=== PATIENT | female | born 1940 | race Caucasian/White ===

== ENCOUNTER → 2019-05-12 09:49 | Outpatient (BNVA) | payer MEDICARE, SELFPAY | PROVIDERS: Family Provider Internal Medicine; Visit Provider Nurse Practitioner | DX: E78.5 Hyperlipidemia, unspecified (principal); E11.9 Type 2 diabetes mellitus without complications | CPT/HCPCS: 80061; 83036 ==

== ENCOUNTER → 2019-11-19 00:01 | Outpatient (BNVA) | payer MEDICARE, SELFPAY | PROVIDERS: Family Provider Internal Medicine; Visit Provider Internal Medicine | DX: E11.9 Type 2 diabetes mellitus without complications (principal); K75.81 Nonalcoholic steatohepatitis (NASH); E78.2 Mixed hyperlipidemia | CPT/HCPCS: 83036; 85025 ==

== ENCOUNTER → 2019-11-30 17:07 | Outpatient (BNVA) | payer MEDICARE, SELFPAY | PROVIDERS: Family Provider Internal Medicine; Visit Provider Nurse Practitioner Family | DX: N39.0 Urinary tract infection, site not specified (principal) | CPT/HCPCS: 80053; 81003; 87077; 87086; 87186 ==

== ENCOUNTER → 2019-12-09 11:27 | Outpatient (BNVA) | payer MEDICARE, SELFPAY | PROVIDERS: Family Provider Internal Medicine; Visit Provider Nurse Practitioner Family | DX: N39.0 Urinary tract infection, site not specified (principal) | CPT/HCPCS: 81003 ==

== ENCOUNTER → 2020-05-06 09:53 | Outpatient (BNVA) | payer MEDICARE, SELFPAY | PROVIDERS: Family Provider Internal Medicine; PCP Internal Medicine; Visit Provider Internal Medicine | DX: E78.2 Mixed hyperlipidemia (principal); E11.9 Type 2 diabetes mellitus without complications | CPT/HCPCS: 80053; 80061; 85025 ==

== ENCOUNTER → 2020-05-13 09:55 | Outpatient (BNVA) | payer MEDICARE, SELFPAY | PROVIDERS: Family Provider Internal Medicine; PCP Internal Medicine; Visit Provider Internal Medicine | DX: E11.9 Type 2 diabetes mellitus without complications (principal) | CPT/HCPCS: 83036 ==

== ENCOUNTER 2020-09-30 08:46 | Outpatient (CLI) | payer MEDICARE, SELFPAY ==
[2020-09-30 09:24] VITALS: BMI 27.3
--- NOTE | 2020-09-30 09:32 | ECG_ITS ---
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 Interpretive Statements NAME OF STUDY: LEXISCAN SESTAMIBI STRESS TEST INDICATION: [Chest Pain, ] Procedure: At the baseline, the blood pressure was 148/70mmHg with a heart rate of 76 bpm. The electrocardiogram showed normal sinus rhythm, normal axis with normal ST and T's. The Lexiscan was infused over a period of 20 seconds. A total of 0.4 mg of Lexiscan was infused. The stress phase was continued for a total of 5 minutes. Heart rate was at the end of stress phase was 107 bpm and a blood pressure of 173/76 mmHg. The EKG at the peak infusion revealed since normal sinus rhythm with no significant ST-T wave changes. Sestamibi was injected 20 seconds after the Lexiscan infusion. Blood pressure at the end of recovery phase was 160/69 mmHg with a heart rate of 99 bpm. Conclusion: 1. Normal EKG response to Lexiscan infusion 2. No Lexiscan induced chest pain or cardiac arrhythmia. 3. Normal blood pressure and heart rate response. 4. Sestamibi/sestamibi perfusion scan pending; see separate report. Electronically Signed On 10-05-2020 13:24:36 CDT by Osmar Guevara M.D. [id number]
--- NOTE | 2020-09-30 09:32 | NMCV_ITS ---
NM pelon perf SPECT r/s* [id number] Leyla Roche Age: 80 Gender: F : 1940 Exam Date: 09/30/2020 09:32 Ordering Phys: Elbert Rankin MD Technologist: SHAGGY Holman Exam Location: [facility] Indications: CHEST PAIN STRESS TEST Please see separate stress test report in Ephiphany for full findings IMAGE PROTOCOL Rest/Stress 1 Lexiscan Day Radiopharmaceutical Dose (mCi) Administration Site Administered by Rest: Tc-99m 10.[address] TECHNOLOGIST Sestamibi Stress:Tc-99m 32.4 IV Lynne Lynn, CT TECHNOLOGIST Sestamibi Rest: 30-Sep-2020 60 Discovery 630 Stress: 30-Sep-2020 30 Discovery 630 0.4mg Lexiscan. Images obtained in supine and prone position. SPECT RESULTS Technical Quality: Excellent Raw Data Analysis: Normal Image Corrections: No attenuation or motion correction applied Summed Stress Score: 9 Summed Rest Score: 3 Summed Difference Score: 6 PERFUSION FINDINGS There is moderate in size reversible perfusion defect seen in apical, apical lateral and anterior alejandro. This improves on prone imaging. This is consistent with ischemia versus attenuation infarct FUNCTIONAL RESULTS (calculated via Gated SPECT) Stress Image LV EF (%): 65 Stress EDV (mL):65 TID: 1.18 Stress ESV (mL):23 FUNCTIONAL FINDINGS: There is normal left ventricular systolic function. IMPRESSIONS 1. Abnormal myocardial perfusion imaging with ischemia vs attenuation artifact of the anterior, apical and apical lateral alejandro. Clinical correlation is required 2. LV systolic function is normal Osmar Guevara MD (Electronically Signed) Final Date: 04 October 2020 13:36 S
[2020-09-30] MEDS: regadenoson 0.4 Mg/5 ml Syringe IVP (10:46)
[2020-09-30 11:09] VITALS: BP 160/69; PULSE 98
== END 2020-09-30 08:47 | disposition home or self-care (01) ==
LOC: CDL 08:48
PROVIDERS: PCP Internal Medicine; Visit Provider Internal Medicine
DX: R07.9 Chest pain, unspecified (principal)
CPT/HCPCS: 78452; 93017; A9500; J2785

== ENCOUNTER → 2020-11-01 11:22 | Outpatient (BNVA) | payer MEDICARE, SELFPAY | PROVIDERS: PCP Internal Medicine; Referring Provider Internal Medicine; Visit Provider Internal Medicine | DX: R94.39 Abnormal result of other cardiovascular function study (principal); Z01.818 Encounter for other preprocedural examination; Z20.822 Contact with and (suspected) exposure to COVID-19 | CPT/HCPCS: 80048; 85025; 85610; 87635 ==

== ENCOUNTER 2020-11-08 07:38 | Outpatient (CLI) | payer MEDICARE, SELFPAY ==
[2020-11-08] VITALS (16 sets, daily range): BP systolic 131–160; BP diastolic 63–89; PULSE 62–99; RESP 12–23; TEMP 36.4–36.8; O2SAT 93–96; BMI 27.4
--- NOTE | 2020-11-08 07:30 | XACV_ITS ---
Exam Room: [facility] Ht: 165 cm Wt: 75 kg BSA: 1.87 m2 Gender: Female : 1940 Any Known Allergies: Other Exam Priority: Routine Procedure(s): Procedure Description: Diagnostic procedure Procedure Description: PCI procedure Procedure Description: Drug Eluting Coronary Stent Procedure Description: PTCA Procedure Description: Coronary Angiography Diagnostic Cath Status: Elective Diagnostic Findings * Left Main has distal 20% stenosis. * Circumflex has no disease. OM 1 is subtotally occluded. * Proximal Left Anterior Descending to Mid Left Anterior Descending: significant 80% stenosis, SANG: 3 flow. Bifurcation stenosis of LAD/Diagonal. * INDICATION: Worsening angina/ abnormal stress test. * Right Coronary Artery has no disease. * 1st Diagonal: severe 90% stenosis, SANG: 3 flow. * Coronary angiography shows right dominance. PCI Status: Elective PCI Indication: New Onset Angina <= 2 months Interventional Findings * Procedure details: We engaged left main artery with XB 3.5 guide catheter. IV heparin was administered to maintain an ACT above 250 seconds. A 0.014 run-through guidewire was used to cross the stenosis and was placed in distal LAD. Fielder XT guidewire was used to cross into diagonal artery. 2.00 x 12 mm semicompliant balloon was used to predilate the stenosis in the ostial diagonal. This was followed by 2.5x12mm semi-compliant balloon angioplasty of prox to mid LAD. We then placed a 2.43k01pw Resolute Paullina EDER. Ostial diagonal artery was rewired and balloon angioplasty of ostial diagonal artery was performed again.At this time final angiogram was performed that showed excellent stent expansion, SANG-3 flow and no residual stenosis in LAD. Ostial diagonal still had residual stenosis. However patient was pain free and there was excellent flow. Guidewire and guide catheter were removed. Patient left the Branch Administrator in a stable condition. * Proximal Left Anterior Descending to Mid Left Anterior Descendin% stenosis treated with a AB TREK 2.50X12 RX BALLOON, and MDT R SCOTTY 2.75X18 EDER. 0% residual stenosis, SANG: 3 flow. * 1st Diagonal: 90% stenosis treated with a AB MINI TREK 2.00X12 RX BALLOON, and AB TREK 2.50X12 RX BALLOON. 0% residual stenosis, SANG: 3 flow. Conclusions 1. There is significant coronary artery disease with bifurcation disease of the LAD/ Diagonal artery. LAD treated with DESx 1 and balloon angioplasty of the diagonal artery. 2. Proximal Left Anterior Descending to Mid Left Anterior Descending was treated with a Balloon, and Drug Eluting Stent. 3. 1st Diagonal was treated with a Balloon, and Balloon. Recommendations * Transfer to [facility]. * Aspirin and Plavix for atleast 1 year. * High intensity statin therapy. * Outpatient cardiology follow up in 4 weeks. Interventional RX Recommendation: PCI w/o planned CABG Diagnostic RX Recommendation: PCI w/o planned CABG Anticoagulation: Heparin Pressures Phase:Rest AO : 88 / 51 ( 68 ) @ 9:16:00 AM 88 / 43 ( 49 ) @ 9:26:00 AM 91 / 40 ( 62 ) @ 9:38:00 AM 109 / 42 ( 68 ) @ 9:43:00 AM 132 / 73 ( 101 ) @ 10:00:00 AM 139 / 61 ( 96 ) @ 10:13:00 AM 141 / 61 ( 97 ) @ 10:35:00 AM Clinical Evaluation EBL: 5mL-10mL Procedural Details Procedure Consent Obtained. Current Diagnosis : Chest Pain. Pre-Procedure Time Out. Identified patient by full name and date of as verbalized by the patient/guarantor. Does the consent match the physician's order: Yes. Accurate & Complete Informed Consent: Yes. Inpatient/Outpatient History & Physical on Chart: Yes. If H&P is completed, is and addenduem needed: No; If yes, is the addendum complete: N/A. Visualize and Verify Site with Patient/Guarantor: N/A. Relevant Radiology Images available: Yes. Pre-op teaching completed and patient verbalized understanding. The risks, benefits, and alternatives of sedation and/or procedure were discussed by physician. The patient agrees to continue. Procedure started. Physician arrived. [facility] Clinical Fraility Score: 3: Managing Well. Branch Administrator Indications: Suspected CAD. Chest Pain Symptom Assessment: Typical Angina Symptoms. Correct patient, site and procedure confirmed by cath team. Current diagnosis: Chest Pain. PERRLA. Strong, equal hand production assembler bilaterally. Lungs clear x 5 lobes. IV Site on Arrival: 20 gauge in the left anticubital. IV Fluids: 0.9% NaCl at KVO. 0 mL infused prior to labor representative. Pre Procedural Pulses: bilateral posterior tibial was 3+. Pre Procedural Pulses: bilateral dorsalis pedis was 3+. Pre Procedural Pulses: bilateral radial was 3+. Oxygen started at 2liters/min via nasal canula. right groin was prepped with chloroprep then draped in the usual sterile fashion. right radial was prepped with chloroprep then draped in the usual sterile fashion. Baseline sample Acquired. HR: 70 BPM. Chanell Noble circulating and Manuel Saba scrubbing. Physician scrubbed in. Immediate Pre-Procedure Time Out. Correct Patient: Yes; Correct Procedure: Yes; Correct Site: Yes; Correct Patient Position: Yes; Correct Supplies: Yes; Dried Flammable Prep: Yes; Blood Products Available: N/A;. Lidocaine 1% infiltrated to the right radial. Arterial access obtained. A 5 burmese TIG catheter in over wire. Multiple views taken of left coronary artery. Catheter redirected to the RCA. Catheter removed over the exchange wire. 6 burmese XB 3.5 guide catheter was inserted over the wire. Runthrough guidewire was advanced through the guide catheter to lesion in the prox LAD. Runthrough guidewire was advanced through the guide catheter to lesion in the diaganol. The LAD runthrough wire out. Runthrough guidewire was advanced through the guide catheter to lesion in the prox LAD. The LAD runthrough wire out. Runthrough guidewire was advanced through the guide catheter to lesion in the prox LAD. The diag runthrough wire out. PT guidewire was advanced through the guide catheter to lesion in the diaganol. Color Mixer wire out. Color Mixer wire inserted.Teleport microcatheter inserted and advanced to the diag. Color Mixer wire out. ACT drawn. Results 397 seconds. Therapeutic limits - pre-heparin administration 90-150 seconds and monitoring heparin during a vascular procedure >250 seconds. Color Mixer wire inserted.Teleport microcatheter inserted and advanced to the diag. Color Mixer wire out. 300cm Runthrough guidewire was advanced through the guide catheter to lesion in the diaganol. wire out. 300cm Runthrough guidewire was advanced through the guide catheter to lesion in the diaganol. Family updated. wire out. Fielder guidewire was advanced through the guide catheter to lesion in the diaganol. wire out. Fielder guidewire was advanced through the guide catheter to lesion in the diaganol. Hydraslide performed with the microcatheter. Microcatheter out. Trek 2.5x12mm balloon inserted and advanced to the diag. LAD wire pulled back to the guide. Balloon out. Runthrough wire out. Inflation number : 1 A AB MINI TREK 2.00X12 RX BALLOON was prepped and advanced across the 1st Diag , then inflated to 12 NEDA for 0:17 seconds. Balloon out. Results checked. Inflation number : 2 A AB TREK 2.50X12 RX BALLOON was prepped and advanced across the 1st Diag , then inflated to 12 NEDA for 0:22 seconds. Balloon out. Results checked. Runthrough guidewire was advanced through the guide catheter to lesion in the prox LAD. Inflation number: 1 The AB TREK 2.50X12 RX BALLOON was reinflated across the Prox LAD, to 12 NEDA for 0:21 seconds. Balloon out. Inflation number: 3 The AB TREK 2.50X12 RX BALLOON was reinflated across the 1st Diag, to 10 NEDA for 0:16 seconds. Balloon out. Inflation Number : 2 A MDRosalinda R SCOTTY 2.75X18 EDER -Lot Number# [id number] was prepped and advanced across the Prox LAD. The stent was deployed at 14 NEDA for 0:27 seconds. EXP 05-27-2022. Stent balloon out. LAD wire redirected to the Diag. Fielder wire out. Inflation number: 4 The AB MINI TREK 2.00X12 RX BALLOON was reinflated across the 1st Diag, to 12 NEDA for 0:17 seconds. Inflation number: 5 The AB MINI TREK 2.00X12 RX BALLOON was reinflated across the 1st Diag, to 12 NEDA for 0:24 seconds. Balloon out. Results checked. Wire out. Guide catheter out. TR band placed. Hemostasis obtained. Post Procedure: Pulses reassessed and unchanged. PERRLA. Strong, equal hand production assembler bilaterally. No VTE prophylaxis required. Vital chart was stopped. Medication's Wasted: Heparin = 4000 units. Medication's Wasted: Nitro = 49.6 mg. Medication's Wasted: Lidocaine 1% = 18 mL. Medication's Wasted: Other = Versed 1 mg. Total IV fluids: 150 mL. Contrast type used: Visipaque 320 mgI/mL, 500 mL bottle. Complications: None. Estimated blood loss: 5mL-10mL. Procedure completed. Patient transferred by bed to 1st floor. ACT drawn. Results 194 seconds. Therapeutic limits - pre-heparin administration 90-150 seconds and monitoring heparin during a vascular procedure >250 seconds. Access Site Site: Right Radial artery Sheath Size: 6 Fr Hemostasis Success: Unsuccessful Procedure Medications Start: 9:59 AM Stop: 9:59 AM Medication: Versed 1 mg and Fentanyl 25 mcg Amount: 1 Route: I.V. Start: 10:07 AM Stop: 10:07 AM Medication: Versed 1 mg and Fentanyl 25 mcg Amount: 1 Route: I.V. Start: 10:10 AM Stop: 10:10 AM Medication: Nitrogylcerin Amount: 200 mcg Route: I.A. Start: 10:12 AM Stop: 10:12 AM Medication: Heparin Amount: 5000 units Route: I.V. Start: 10:22 AM Stop: 10:22 AM Medication: Heparin Amount: 4000 units Route: I.V. Start: 10:32 AM Stop: 10:32 AM Medication: Versed Amount: 1 mg Route: I.V. Start: 10:34 AM Stop: 10:34 AM Medication: Fentanyl Amount: 25 mcg Route: I.V. Start: 10:56 AM Stop: 10:56 AM Medication: Heparin Amount: 1000 units Route: I.V. Start: 11:07 AM Stop: 11:07 AM Medication: Versed 1 mg and Fentanyl 25 mcg Amount: 1 Route: I.V. Start: 11:31 AM Stop: 11:31 AM Medication: Nitrogylcerin Amount: 200 mcg Route: I.A. Start: 11:34 AM Stop: 11:34 AM Medication: Versed Amount: 1 mg Route: I.V. Start: 11:35 AM Stop: 11:35 AM Medication: Nitrogylcerin Amount: 200 mcg Route: I.A. Start: 11:40 AM Stop: 11:40 AM Medication: Plavix Amount: 600 mg Route: P.O. Start: 11:50 AM Stop: 11:50 AM Medication: Heparin Amount: 3000 units Route: I.V. I, the attending physician, have reviewed and verified all procedure medications. Yes, all medications given per verbal order History/Risk Factors Hypertension: No Dyslipidemia: Yes Peripheral Arterial Disease (PAD): No Myocardial Infarction (UT): No Obesity: No Renal Disease: No Prior Interventions PCI: No CABG: No Valve Surgery: No Report Signatures Finalized by Osmar Guevara MD on 11/13/2020 10:46 PM
[2020-11-08] MEDS: diphenhydrAMINE 50 mg Capsule PO (08:36)
--- NOTE | 2020-11-08 09:44 | W.PM.OPSUD ---
Surgery/Procedure H&P Update DATE OF PROCEDURE: November 08, 2020 DATE H&P PERFORMED: 10/12/20 H&P UPDATE INFORMATION: I have reviewed H&P completed within last 30 days, I have examined patient prior to procedure and No changes to prior documentation PREOP DIAGNOSIS: Chest pain/abnormal stress test PLANNED PROCEDURE: Operation Date: 11/08/20 08:30 Proposed Procedures p Cardiac Catheterization(Bilateral) - Osmar Guevara M.D Possible percutaneous intervention PATIENT REASSESSED PRIOR TO SEDATION, WITH NO CHANGE NOTED: Yes PHYSICAL EXAM: alert, oriented x 3, clear to auscultation bilaterally and regular rate & rhythm AIRWAY EVAL/ANESTHESIA PLAN: ASA III, Monitored Anesthesia, Local Anesthesia, Risks, benefits & alternatives of sedation and/or procedure discussed and Patient agrees to continue as planned
--- NOTE | 2020-11-08 11:59 | ECG_ITS ---
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
[2020-11-08] MEDS: nitroglycerin 1 gm/inch oint Pkt 1 INCH TOPICAL (12:32)
--- NOTE | 2020-11-08 16:47 | PC.NURSE ---
Shift Note Frequent safety and comfort rounds continue. Orders and/or nursing care completed as indicated. Patient monitored for response to intervention and treatment(s). Education provided includes post angiogram care instructions. Patient and/or client relations representative verbalized understanding. Will continue to monitor.
[2020-11-08 19:56] LABS: Glucose Point of Care 197 mg/dL (70-110)
[2020-11-08] MEDS: metoprolol tartrate 50 mg Tablet PO (20:26)
[2020-11-09] VITALS: BP 128/61; PULSE 75; RESP 17; TEMP 36.9; O2SAT 93
--- NOTE | 2020-11-09 02:55 | PC.NURSE ---
Shift Note Frequent safety and comfort rounds continue. Orders and/or nursing care completed as indicated. Patient monitored for response to intervention and treatment(s). Education provided includes side effects of metoprolol. Patient and daughter verbalized understanding. Will continue to monitor. Pt had fluids running at 75ml/hr but there was not a bag scanned into the MAR.
[2020-11-09 03:27] VITALS: BP 146/70; PULSE 77; RESP 14; TEMP 37.1; O2SAT 94
[2020-11-09 03:29] VITALS: PULSE 94
[2020-11-09 04:46] LABS: Basophils # 0.1 10^3/uL (0.0-0.1); Basophils % 0.5 %; Eosinophils # 0.1 10^3/uL (0.0-0.8); Eosinophils % 1.4 %; Hematocrit 41.3 % (37.0-47.0); Hemoglobin 13.3 g/dL (11.5-15.3); Lymphocytes # 2.1 10^3/uL (0.8-4.8); Lymphocytes % 21.3 %; Mean Corpuscular HGB Conc 32.2 g/dL (30.0-36.0); Mean Corpuscular Hemoglobin 29.8 pg (28.0-34.0); Mean Corpuscular Volume 92.6 fl (81-99); Mean Platelet Volume 10.7 fL (7.4-10.4); Monocytes # 0.9 10^3/uL (0.2-0.9); Monocytes % 9.1 %; Neutrophils # 6.63 10^3/uL (1.8-7.7); Neutrophils % 67.4 %; Nucleated Red Blood Cells % 0 %; Platelet Count 256 10^3/cmm (130-400); Red Blood Count 4.46 10^6/uL (4.1-5.3); Red Cell Distribution Width 12.6 % (12.1-15.1); White Blood Count 9.8 10^3/uL (4.0-10.0)
[2020-11-09 05:06] LABS: Anion Gap 14.1 (5-19); Blood Urea Nitrogen 20 mg/dL (8-23); Calcium 8.8 mg/dL (8.5-10.5); Carbon Dioxide 25 mmol/L (22-29); Chloride 106 mmol/L (98-107); Glucose 220 mg/dL (65-115); Osmolality Calculated 301 mOsm/kg (285-295); Potassium 4.1 mmol/L (3.5-5.1); Sodium 141 mmol/L (136-145)
[2020-11-09 06:34] LABS: Glucose Point of Care 221 mg/dL (70-110)
[2020-11-09] MEDS: aspirin 81 mg EC Tablet PO (07:55)
[2020-11-09] MEDS: clopidogrel 75 mg Tablet PO (07:56)
[2020-11-09] MEDS: metoprolol tartrate 50 mg Tablet PO (07:56)
[2020-11-09 08:00] VITALS: BP 135/65; PULSE 86; RESP 19; TEMP 36.4; O2SAT 96
--- NOTE | 2020-11-09 08:42 | PC.CHAP ---
Pastoral Care Encounter/Spiritual Assessment Type of Contact [] Declined cookee visit [] Patient/Family/Request visit [] Outpatient visit [] Follow-up visit [] Physician referral [] Code/Alert [x] Routine visit [] Staff referral [] Actively dying [] Patient sleeping [] Family support [] [] Out of room [] Palliative care [] [] Receiving care in room [] Pre-surgical visit [] Trauma [] Long length of stay [] ICU visit [] Other: Relational/Emotional Strength [] Patient feels connected with others/family/visitors/staff [] Distress [] Loneliness/isolation [] Abandonment Spirituality of Patient [] Person of Magaly [] Attends Jainism of their [place] [] Believes in Prayer [] Reads Bible or Baptist materials [] There are Spiritual issues to be addressed Clinical Reimbursement Specialist Interventions [x] Prayer [] Active listening [] Non-anxious presence [] Spiritual/emotional support [] Crisis/trauma care [] Spiritual counseling [] Bereavement support [] Provided bereavement packet [] Provided Bible/devotional materials [] Provided toy/stuffed animal, coloring book to patient or family member [] Provided Communion [] Anointing/[place] [] Salvation [x] Completed spiritual assessment [] Other: Impact on Illness or Injury [] Angry [] Fearful [] Anxious [] Often cries [] Exhaustion [] Unable to work [] Unable to attend orthodoxy [] Unable to walk/stand [] Unable to read [] Unable to drive [] Unable to eat/drink [] Unable to sleep [] Unable to be with family [] Patient intubated [] Other: Summary Time spent with patient
--- NOTE | 2020-11-09 10:01 | P.DS_ITS ---
Discharge Providers Date of Admission: 11/08/2020 Date of Discharge: November 09, 2020 Attending Provider at Admission: Osmar Guevara MD Attending Provider at Discharge: Osmar Guevara M.D Primary Care Provider: Elbert Rankin MD Reason for Visit Reason for Visit: R94.39 Brief History: 80-year-old woman with past medical history of type 2 diabetes, diabetic neuropathy presented with having chest discomfort episodes since July. She had one episode in July when she was rushing and felt substernal pressure. It lasted for several minutes. She again had another episode last month that was similar as she was going uphill and started noticing substernal chest discomfort. She had to rest for several minutes before it improved. Non radiating. A Lexiscan was performed that showed moderate sized anterior, apical lateral and apical wall perfusion defect. However attenuation artifact could not be ruled out. Plan for left heart cath Hospital Course Hospital Course 80-year-old woman with past medical history of type 2 diabetes, diabetic neuropathy presented with having chest discomfort episodes since July. She had one episode in July when she was rushing and felt substernal pressure. It lasted for several minutes. She again had another episode last month that was similar as she was going uphill and started noticing substernal chest discomfort. She had to rest for several minutes before it improved. Non radiating. A Lexiscan was performed that showed moderate sized anterior, apical lateral and apical wall perfusion defect. However attenuation artifact could not be ruled out. Plan for left heart cath Coronary angiogram showed severe LAD and diagonal artery bifurcation stenosis. Proximal to mid LAD was treated with EDER x1. Diagonal artery underwent balloon angioplasty. Patient had a brief chest discomfort postprocedure however it resolved with nitro. She will be discharged on aspirin and Plavix for at least 1 year. Physical Exam Narrative: EXAM NARRATIVE: GENERAL: Patient is alert, awake and oriented x3. [] NECK: No jugular vein distension. [] HEENT: No cyanosis. No icterus. No pallor. [] HEART: Regular S1 and S2. No murmur, rub or gallop. [] LUNGS: Clear to auscultate bilaterally. [] ABDOMEN: Soft, nontender and nondistended. Positive bowel sounds. No guarding, rebound or tenderness. [] CENTRAL NERVOUS SYSTEM: Grossly nonfocal. [] EXTREMITIES: Lower extremities with no edema bilaterally. Pulses palpable in the lower extremities, both dorsalis pedis and posterior tibial. [] Discharge Data Data Completed and Pending: Pending at discharge Category Date Time Status FOIL SPINNER request for service Routin e Exams 11/08/20 07:30 Taken Labs from last 24 hours 11/09/20 11/09/20 11/09/20 06:24 04:16 04:16 WBC 9.8 RBC 4.46 Hgb 13.3 Hct 41.3 MCV 92.6 MCH 29.8 MCHC 32.2 RDW 12.6 Plt Count 256 MPV 10.7 H Neut % (Auto) 67.4 Lymph % (Auto) 21.3 [place] % (Auto) 9.1 Eos % (Auto) 1.4 Baso % (Auto) 0.5 Neut # (Auto) 6.63 Lymph # (Auto) 2.1 [place] # (Auto) 0.9 Eos # (Auto) 0.1 Baso # (Auto) 0.1 Nucleated RBC % (a uto) 0 Nucleated RBCs # 0.0 Sodium 141 Potassium 4.1 Chloride 106 Carbon Dioxide 25 Anion Gap 14.1 BUN 20 Creatinine 0.5 GFR Calculation Not Reportable Glucose 220 H POC Glucose 221 H Calculated Osmolal ity 301 H Calcium 8.8 11/08/20 19:30 WBC RBC Hgb Hct MCV MCH MCHC RDW Plt Count MPV Neut % (Auto) Lymph % (Auto) [place] % (Auto) Eos % (Auto) Baso % (Auto) Neut # (Auto) Lymph # (Auto) [place] # (Auto) Eos # (Auto) Baso # (Auto) Nucleated RBC % (a uto) Nucleated RBCs # Sodium Potassium Chloride Carbon Dioxide Anion Gap BUN Creatinine GFR Calculation Glucose POC Glucose 197 H Calculated Osmolal ity Calcium Vitals: Last Vital Signs Temp 97.6 F 11/09/20 08:00 Pulse 86 11/09/20 08:00 Resp 19 H 11/09/20 08:00 BP 135/65 11/09/20 08:00 Pulse Ox 96 11/09/20 08:00 Discharge Plan Discharge Patient Disposition: Home Prescriptions: New clopidogrel 75 mg Tablet 75 mg PO DAILY Qty: 90 RF: 3 isosorbide mononitrate 30 mg tablet extended release 24 hr 30 mg PO DAILY Qty: 30 RF: 1 Continued (DME) blood sugar diagnostic Strip See Rx Instructions strip .ROUTE .MEDSUPPLY Qty: 10 RF: 0 gabapentin 300 mg capsule 300 mg PO DAILY RF: 0 glimepiride 4 mg tablet 4 mg PO BID Qty: 180 RF: 3 (DME) Diabetic shoes and inserts Qty: 1 RF: 0 simvastatin 40 mg tablet 40 mg PO DAILY Qty: 90 RF: 3 (DME) Accu-Chek Janet Plus test strp Strip See Rx Instructions .ROUTE .MEDSUPPLY Qty: 100 RF: 3 (DME) lancets Misc See Rx Instructions ea .ROUTE .MEDSUPPLY Qty: 200 RF: 8 metoprolol tartrate 50 mg tablet 50 mg PO BID Qty: 60 RF: 2 amlodipine 5 mg tablet 5 mg PO DAILY Qty: 90 RF: 0 aspirin 81 mg tablet 81 mg PO DAILY RF: 0 omeprazole 20 mg tablet 20 mg PO DAILY RF: 0 Held metformin 500 mg tablet extended release 24 hr 1,000 mg PO DAILY Qty: 180 RF: 3 Hold Instructions: Resume on 11/11/20. Discontinued celecoxib 100 mg capsule 100 mg PO BID Qty: 180 RF: 3 No Action Lantus Solostar U-100 Insulin 100 unit/mL (3 mL) insulin pen 20 unit SUBCUT .QPM Qty: 15 RF: 0 Discharge Orders: Discharge Order (Routine); Ordered 11/09/20 Ordered By: Osmar Guevara Referrals: Osmar Guevara M.D [Physician] - 1 month (You will have a follow up appointment with Dr. Guevara on SaturdayDecember 19 at 3 pm. Please bring your med list and insurance card during doctor's visit. ) Gladys Brown FNP [Nurse Practitioner] - 7-10 days (You have a follow-up appointment on SaturdayNovember 16 at 2:30 pm. Please bring your med list and insurance card during doctor's visit. ) Diet: Diabetic Activity: Increase activity as tolerated Patient Instructions: Isosorbide Mononitrate (By mouth), Clopidogrel (By mouth), Left Heart Catheterization (DC), Coronary Intravascular Stent Placement (DC), Post Angiogram Home Care Instructions Activity Restrictions/Additional Instructions: Please do not lift more than 5 pounds of weight for the next 5 days Stand Alone Forms: Work/School Release Discharge Date/Time: 11/09/20 11:17 Discharge Attestations Time Spent in Discharge Care*: greater than 30 min Quality Metrics Clinical Quality Measures During this hospital stay, did patient experience: None Coding Level of Care Code Acute Chg DC note
--- NOTE | 2020-11-09 11:18 | PC.NURSE ---
Discharge Note Patient discharged to home via wheelchair accompanied by daughter. Discharge instructions reviewed with patient and/or parts counter representative. Post angiogram home care instructions discussed to pt and daughter. new meds actions, dosing, timing, continued, hold and discontinued meds discuss to pt. Discharge packet provided to pt. Mobile pharmacy medications and/or prescriptions provided. Belongings/home medications returned.
== END 2020-11-09 11:17 | disposition home or self-care (01) ==
LOC: CCL 07:46 → CSU 14:50
PROVIDERS: Internal Medicine Cardiovascular Disease; PCP Internal Medicine; Visit Provider Internal Medicine
DX: I25.119 Atherosclerotic heart disease of native coronary artery with unspecified angina pectoris (principal); R07.89 Other chest pain; E11.40 Type 2 diabetes mellitus with diabetic neuropathy, unspecified; E78.2 Mixed hyperlipidemia; Z82.49 Family history of ischemic heart disease and other diseases of the circulatory system; Z83.3 Family history of diabetes mellitus
CPT/HCPCS: 36415; 36416; 80048; 82962; 85025; 85347; 93005; 93454; 96372; C1725; C1769; C1874; C1887; C1894; C9600; J1644; J1815; J2250; J3010; J3490; J7030; Q0163; Q9967

== ENCOUNTER → 2020-11-16 15:20 | Outpatient (BNVA) | payer MEDICARE, SELFPAY | PROVIDERS: PCP Internal Medicine; Visit Provider Nurse Practitioner Family | DX: I25.10 Atherosclerotic heart disease of native coronary artery without angina pectoris (principal); Z95.5 Presence of coronary angioplasty implant and graft | CPT/HCPCS: 80048 ==

== ENCOUNTER → 2021-01-10 16:29 | Outpatient (BNVA) | payer MEDICARE, SELFPAY | PROVIDERS: PCP Internal Medicine; Visit Provider Internal Medicine | DX: I25.10 Atherosclerotic heart disease of native coronary artery without angina pectoris (principal); R94.39 Abnormal result of other cardiovascular function study; I10 Essential (primary) hypertension | CPT/HCPCS: 80048; 83880 ==

== ENCOUNTER → 2021-06-19 14:03 | Outpatient (BNVA) | payer MEDICARE, SELFPAY | PROVIDERS: PCP Internal Medicine; Visit Provider Internal Medicine | DX: Z09 Encounter for follow-up examination after completed treatment for conditions other than malignant neoplasm (principal); I25.10 Atherosclerotic heart disease of native coronary artery without angina pectoris; E78.2 Mixed hyperlipidemia; E11.9 Type 2 diabetes mellitus without complications; I10 Essential (primary) hypertension; Z79.4 Long term (current) use of insulin; Z79.82 Long term (current) use of aspirin | CPT/HCPCS: 99214 ==

== ENCOUNTER → 2021-08-17 09:43 | Outpatient (BNVA) | payer MEDICARE, SELFPAY | PROVIDERS: PCP Internal Medicine; Visit Provider Internal Medicine | DX: E11.9 Type 2 diabetes mellitus without complications (principal); I10 Essential (primary) hypertension; I25.10 Atherosclerotic heart disease of native coronary artery without angina pectoris; E11.40 Type 2 diabetes mellitus with diabetic neuropathy, unspecified; E78.2 Mixed hyperlipidemia; R07.89 Other chest pain; M19.90 Unspecified osteoarthritis, unspecified site | CPT/HCPCS: 80053; 80061; 83036; 84443; 85025 ==

== ENCOUNTER → 2021-12-18 15:10 | Outpatient (BNVA) | payer MEDICARE, SELFPAY | PROVIDERS: PCP Internal Medicine; Visit Provider Internal Medicine | DX: I25.10 Atherosclerotic heart disease of native coronary artery without angina pectoris (principal); I10 Essential (primary) hypertension; E78.2 Mixed hyperlipidemia; E11.9 Type 2 diabetes mellitus without complications; Z79.4 Long term (current) use of insulin; Z79.84 Long term (current) use of oral hypoglycemic drugs; R07.9 Chest pain, unspecified | CPT/HCPCS: 99214 ==

== ENCOUNTER 2022-01-10 08:53 | Outpatient (CLI) | payer MEDICARE, SELFPAY ==
[2022-01-10 08:56] VITALS: BMI 27.9
--- NOTE | 2022-01-10 08:57 | ECG_ITS ---
[facility] Test Date: 2022-01-10 Pat Name: Leyla Roche Department: Room: Gender: Female [employer]: : 1940 Requested By: Osmar Guevara Order Number: [id number] Krishna MD: Latoya Franks M.D. Interpretive Statements NAME OF STUDY: LEXISCAN SESTAMIBI STRESS TEST INDICATION: Chest Pain PROCEDURE: At the baseline, the blood pressure was 130/58 mmHg with a heart rate of 59 bpm. The electrocardiogram showed sinus bradycardia, normal axis with normal ST and T's. The Lexiscan was infused over a period of 20 seconds. A total of 0.4 milligrams of Lexiscan was infused. The stress phase was continued for a total of 5 minutes. Heart rate at the end of the stress phase was 82 bpm with a blood pressure of 136/49 mmHg. The EKG at the peak infusion revealed sinus rhythm with no significant ST-T wave changes. The study was terminated due to protocol completion. Sestamibi was injected 20 seconds after the Lexiscan infusion. Blood pressure at the end of the recovery phase was 134/53 mmHg with a heart rate of 81 beats per minute. CONCLUSION: 1. Normal EKG response to LexiScan infusion. 2. No LexiScan induced chest pain or cardiac arrhythmia. 3. Normal blood pressure and heart rate response. 4. Sestamibi/sestamibi perfusion scan pending; see separate report. Electronically Signed On 01-11-2022 17:21:24 CDT by Latoya Franks M.D. [id number]
--- NOTE | 2022-01-10 08:57 | NMCV_ITS ---
NM pelon perf SPECT r/s* [id number] Leyla Roche Age: 81 Gender: F : 1940 Exam Date: 01/10/2022 10:14 Ordering Phys: Osmar Guevara M.D ([email or web address]) Technologist: SHAGGY Holman Exam Location: [facility] Indications: CHEST PAIN STRESS TEST Please see separate stress test report in [facility] for full findings IMAGE PROTOCOL Rest/Stress 1 Lexiscan Day Radiopharmaceutical Dose (mCi) Administration Site Administered by Rest: Tc-99m 10.4 IV KRISTIE JEAN DETAIL SUPERVISOR Sestamibi Stress:Tc-99m 32.6 IV KRISTIE JEAN DETAIL SUPERVISOR Sestamibi Rest: 10-Jan-2022 60 Discovery 630 Stress: 10-Jan-2022 30 Discovery 630 0.4mg Lexiscan. Images obtained in supine and prone position. SPECT RESULTS Technical Quality: Excellent Raw Data Analysis: Hepatic and subdiaphragmatic attenuation artifact. Image Corrections: No attenuation or motion correction applied Summed Stress Score: 2 Summed Rest Score: 1 Summed Difference Score: 1 PERFUSION FINDINGS SPECT images demonstrate homogeneous tracer distribution throughout the myocardium. FUNCTIONAL RESULTS (calculated via Gated SPECT) Stress Image LV EF (%): 80 Stress EDV (mL):60 TID: 1.37 Stress ESV (mL):12 FUNCTIONAL FINDINGS: The left ventricle is normal in size. Transient Ischemia Dilatation of 1.37. The left ventricular ejection fraction is normal with a value of 80%. There is hyperdynamic left ventricular global systolic function. IMPRESSIONS 1. Myocardial perfusion imaging is normal. 2. Overall left ventricular systolic function is normal without regional wall motion abnormalities, LVEF=80%. 3. Transient ischemic dilation index increased at 1.37. This may represent subendocardial ischemia/hypertensive response. Clinical correlation is advised. 4. No EKG changes with Lexiscan infusion. Latoya Franks MD (Electronically Signed) Final Date: 11 January 2022 17:26 S
[2022-01-10] MEDS: regadenoson 0.4 Mg/5 ml Syringe IVP (11:16)
[2022-01-10 11:49] VITALS: BP 133/85; PULSE 82
== END 2022-01-10 08:54 | disposition home or self-care (01) ==
PROVIDERS: PCP Internal Medicine; Visit Provider Internal Medicine
DX: R07.9 Chest pain, unspecified (principal)
CPT/HCPCS: 78452; 93017; A9500; J2785

== ENCOUNTER → 2022-06-22 10:36 | Outpatient (BNVA) | payer MEDICARE, SELFPAY | PROVIDERS: PCP Internal Medicine; Visit Provider Internal Medicine | DX: I25.10 Atherosclerotic heart disease of native coronary artery without angina pectoris (principal); E78.2 Mixed hyperlipidemia; E11.9 Type 2 diabetes mellitus without complications; Z79.4 Long term (current) use of insulin; I10 Essential (primary) hypertension; Z79.82 Long term (current) use of aspirin | CPT/HCPCS: 99214 ==

== ENCOUNTER → 2022-12-21 11:29 | Outpatient (BNVA) | payer MEDICARE, SELFPAY | PROVIDERS: PCP Internal Medicine; Visit Provider Internal Medicine | DX: I25.10 Atherosclerotic heart disease of native coronary artery without angina pectoris (principal); E78.2 Mixed hyperlipidemia; E11.9 Type 2 diabetes mellitus without complications; Z79.4 Long term (current) use of insulin; I10 Essential (primary) hypertension | CPT/HCPCS: 99214 ==

== ENCOUNTER → 2022-12-31 14:32 | Outpatient (BNVA) | payer MEDICARE, SELFPAY | PROVIDERS: PCP Internal Medicine; Visit Provider Podiatrist Foot & Ankle Surgery | DX: B35.1 Tinea unguium (principal); E11.40 Type 2 diabetes mellitus with diabetic neuropathy, unspecified; G62.9 Polyneuropathy, unspecified; I73.9 Peripheral vascular disease, unspecified; E11.42 Type 2 diabetes mellitus with diabetic polyneuropathy; Z79.4 Long term (current) use of insulin; Z79.84 Long term (current) use of oral hypoglycemic drugs | CPT/HCPCS: 11721; 99203 ==

== ENCOUNTER → 2023-04-15 12:40 | Outpatient (BNVA) | payer MEDICARE, SELFPAY | PROVIDERS: PCP Internal Medicine; Visit Provider Podiatrist Foot & Ankle Surgery | DX: B35.1 Tinea unguium (principal); E11.40 Type 2 diabetes mellitus with diabetic neuropathy, unspecified; G62.9 Polyneuropathy, unspecified; I73.9 Peripheral vascular disease, unspecified; E11.42 Type 2 diabetes mellitus with diabetic polyneuropathy; Z79.4 Long term (current) use of insulin; Z79.84 Long term (current) use of oral hypoglycemic drugs | CPT/HCPCS: 11721 ==

== ENCOUNTER → 2023-06-20 14:41 | Outpatient (BNVA) | payer MEDICARE, SELFPAY | PROVIDERS: PCP Internal Medicine; Visit Provider Internal Medicine | DX: I25.10 Atherosclerotic heart disease of native coronary artery without angina pectoris (principal); E11.9 Type 2 diabetes mellitus without complications; E78.2 Mixed hyperlipidemia; I10 Essential (primary) hypertension; Z79.4 Long term (current) use of insulin | CPT/HCPCS: 99214 ==

== ENCOUNTER → 2023-07-01 11:13 | Outpatient (BNVA) | payer MEDICARE, SELFPAY | PROVIDERS: PCP Internal Medicine; Visit Provider Podiatrist Foot & Ankle Surgery | DX: B35.1 Tinea unguium (principal); E11.40 Type 2 diabetes mellitus with diabetic neuropathy, unspecified; G62.9 Polyneuropathy, unspecified; I73.9 Peripheral vascular disease, unspecified; L84 Corns and callosities; E11.42 Type 2 diabetes mellitus with diabetic polyneuropathy; Z79.84 Long term (current) use of oral hypoglycemic drugs; Z79.4 Long term (current) use of insulin | CPT/HCPCS: 11056; 11721 ==

== ENCOUNTER → 2023-09-05 11:05 | Outpatient (BNVA) | payer MEDICARE, SELFPAY | PROVIDERS: PCP Internal Medicine; Visit Provider Podiatrist Foot & Ankle Surgery | DX: B35.1 Tinea unguium (principal); E11.40 Type 2 diabetes mellitus with diabetic neuropathy, unspecified; G62.9 Polyneuropathy, unspecified; I73.9 Peripheral vascular disease, unspecified; L84 Corns and callosities; E11.42 Type 2 diabetes mellitus with diabetic polyneuropathy; Z79.4 Long term (current) use of insulin; Z79.84 Long term (current) use of oral hypoglycemic drugs | CPT/HCPCS: 11721 ==

== ENCOUNTER → 2023-11-14 11:30 | Outpatient (BNVA) | payer MEDICARE, SELFPAY | PROVIDERS: PCP Internal Medicine; Visit Provider Podiatrist Foot & Ankle Surgery | DX: B35.1 Tinea unguium (principal); E11.40 Type 2 diabetes mellitus with diabetic neuropathy, unspecified; G62.9 Polyneuropathy, unspecified; I73.9 Peripheral vascular disease, unspecified; L84 Corns and callosities; Z79.84 Long term (current) use of oral hypoglycemic drugs; Z79.4 Long term (current) use of insulin | CPT/HCPCS: 11055; 11721 ==

== ENCOUNTER → 2023-12-25 11:48 | Outpatient (BNVA) | payer MEDICARE, SELFPAY | PROVIDERS: PCP Internal Medicine; Visit Provider Internal Medicine | DX: I25.10 Atherosclerotic heart disease of native coronary artery without angina pectoris (principal); E78.2 Mixed hyperlipidemia; E11.9 Type 2 diabetes mellitus without complications; Z79.84 Long term (current) use of oral hypoglycemic drugs; Z79.4 Long term (current) use of insulin; I10 Essential (primary) hypertension | CPT/HCPCS: 99213 ==

== ENCOUNTER → 2024-01-23 10:44 | Outpatient (BNVA) | payer MEDICARE, SELFPAY | PROVIDERS: PCP Internal Medicine; Visit Provider Podiatrist Foot & Ankle Surgery | DX: B35.1 Tinea unguium (principal); E11.40 Type 2 diabetes mellitus with diabetic neuropathy, unspecified; G62.9 Polyneuropathy, unspecified; I73.9 Peripheral vascular disease, unspecified; L84 Corns and callosities; Z79.4 Long term (current) use of insulin; Z79.84 Long term (current) use of oral hypoglycemic drugs | CPT/HCPCS: 11056; 11721 ==

== ENCOUNTER → 2024-03-24 12:56 | Outpatient (BNVA) | payer MEDICARE, SELFPAY | PROVIDERS: PCP Internal Medicine; Visit Provider Podiatrist Foot & Ankle Surgery | DX: B35.1 Tinea unguium (principal); E11.40 Type 2 diabetes mellitus with diabetic neuropathy, unspecified; G62.9 Polyneuropathy, unspecified; I73.9 Peripheral vascular disease, unspecified; L84 Corns and callosities; Z79.84 Long term (current) use of oral hypoglycemic drugs; Z79.4 Long term (current) use of insulin | CPT/HCPCS: 11056; 11721 ==

== ENCOUNTER → 2024-05-25 13:33 | Outpatient (BNVA) | payer MEDICARE, SELFPAY | PROVIDERS: PCP Internal Medicine; Visit Provider Podiatrist Foot & Ankle Surgery | DX: E11.40 Type 2 diabetes mellitus with diabetic neuropathy, unspecified (principal); B35.1 Tinea unguium; L84 Corns and callosities; G62.9 Polyneuropathy, unspecified; I73.9 Peripheral vascular disease, unspecified; Z79.84 Long term (current) use of oral hypoglycemic drugs; Z79.4 Long term (current) use of insulin | CPT/HCPCS: 11056; 11721 ==

== ENCOUNTER → 2024-07-02 12:31 | Outpatient (BNVA) | payer MEDICARE, SELFPAY | PROVIDERS: PCP Internal Medicine; Visit Provider Internal Medicine | DX: R06.09 Other forms of dyspnea (principal); I25.10 Atherosclerotic heart disease of native coronary artery without angina pectoris; E78.2 Mixed hyperlipidemia; I10 Essential (primary) hypertension; E11.9 Type 2 diabetes mellitus without complications; Z79.4 Long term (current) use of insulin; Z79.84 Long term (current) use of oral hypoglycemic drugs; Z79.01 Long term (current) use of anticoagulants; Z79.82 Long term (current) use of aspirin | CPT/HCPCS: 99213 ==

== ENCOUNTER → 2024-07-28 14:06 | Outpatient (BNVA) | payer MEDICARE, SELFPAY | PROVIDERS: PCP Internal Medicine; Visit Provider Podiatrist Foot & Ankle Surgery | DX: E11.40 Type 2 diabetes mellitus with diabetic neuropathy, unspecified (principal); B35.1 Tinea unguium; L84 Corns and callosities; G62.9 Polyneuropathy, unspecified; I73.9 Peripheral vascular disease, unspecified; Z79.4 Long term (current) use of insulin; Z79.84 Long term (current) use of oral hypoglycemic drugs | CPT/HCPCS: 11056; 11721 ==

== ENCOUNTER → 2024-10-06 14:00 | Outpatient (BNVA) | payer MEDICARE, SELFPAY | PROVIDERS: PCP Internal Medicine; Visit Provider Podiatrist Foot & Ankle Surgery | DX: E11.40 Type 2 diabetes mellitus with diabetic neuropathy, unspecified (principal); B35.1 Tinea unguium; L84 Corns and callosities; G62.9 Polyneuropathy, unspecified; I73.9 Peripheral vascular disease, unspecified; Z79.84 Long term (current) use of oral hypoglycemic drugs; Z79.4 Long term (current) use of insulin | CPT/HCPCS: 11056; 11721 ==

== ENCOUNTER → 2025-01-07 13:35 | Outpatient (BNVA) | payer MEDICARE, SELFPAY | PROVIDERS: PCP Internal Medicine; Visit Provider Podiatrist Foot & Ankle Surgery | DX: E11.40 Type 2 diabetes mellitus with diabetic neuropathy, unspecified (principal); B35.1 Tinea unguium; L84 Corns and callosities; G62.9 Polyneuropathy, unspecified; E11.8 Type 2 diabetes mellitus with unspecified complications; I73.9 Peripheral vascular disease, unspecified; Z79.4 Long term (current) use of insulin; Z79.84 Long term (current) use of oral hypoglycemic drugs | CPT/HCPCS: 11055; 11721 ==